=== PATIENT | female | born 1955 | race Caucasian/White ===

== ENCOUNTER 2016-09-24 01:25 | Emergency (ER) | payer OTHER ==
[~2016-09-24] VITALS: Ht 167.6 cm; Wt 78.6 kg
[~2016-09-24 01:25] MED LIST: OMEP20CA11 PO
[2016-09-24 01:30] VITALS: BP 160/80; PULSE 80; RESP 16; O2SAT 96
--- NOTE | 2016-09-24 01:39 | ED.REPORT ---
HPI-General Illness Date of Service Sep 24, 2016 ED Provider: Dr. Jason Mendoza M.D. A 61 year old female with a history of GERD presents to the ED with UTI symptoms onset two days ago. These symptoms include dysuria, urinary frequency, and urinary urgency. She denies flank pain, external genital pain, or fever. She has had a UTI with similar symptoms in the past. Nursing Notes Stated Complaint: POSSIBLE UTI Chief Complaint: Female Abdominal Pain Nursing Notes Reviewed: Yes Allergies: Coded Allergies: tetracycline (Verified Allergy, Severe, Rash,Itching,, 09/12/15) cyclobenzaprine (Verified Allergy, Unknown, 09/12/15) Scheduled Cephalexin (Keflex) 500 Mg Capsule 500 MG PO QID Omeprazole (Omeprazole) 20 Mg Capsule.dr 20 MG PO DAILY Scheduled PRN Phenazopyridine (Phenazopyridine) 200 Mg Tablet 200 MG PO TID PRN PRN dysuria General Time Seen by MD: 01:38 Chief Complaint Other (Dysuria) Hx Obtained From: Patient Arrived By: Walk-in Sudden in Onset?: No Onset Occurred: 2 days ago Symptom Duration: Since onset Severity: Current: No pain currently Severity: Maximum: No pain Associated with: Denies: Fever Pertinent Negative: Relieved by nothing Context Related History: Reports GERD Recent Healthcare: No recent doctor visit Similar Sx Previous: Yes Past Medical History Past Medical History GERD Past Surgical History Colonoscopy Esophagogastroduodenoscopy with biopsies Smoking History Former Smoker Ambulatory Status Independent Review of Systems - external genital pain Full Review of Systems Constitutional: Denies: Fever Female: Reports: Dysuria, Urinary frequency, Urinary urgency, Denies: Flank pain Complete sys rev & neg: except as marked. Physical Exam Vital Signs Vital Signs Date Time Temp Pulse Resp B/P Pulse Ox O2 Delivery O2 Flow Rate FiO2 09/24/16 02:18 36.3 80 16 160/80 96 Room Air 09/24/16 01:30 36.3 80 16 160/80 96 Room Air Initial VS: Reviewed Head / Eyes: Atraumatic, Normocephalic ENT: Conjunctiva normal, No scleral icterus Neck: Supple, Full range of motion Respiratory: No respiratory distress Abdomen / GI: Soft, Non-tender Back: No CVA tenderness Skin: Warm, Dry, No cyanosis Neurologic: Alert, Oriented, Nonfocal Psychiatric: Mood/affect normal, Behavior normal, Normal thought content General/Constitutional: Awake, Alert, No acute distress Interpretation & Diagnostics Lab Results Interpretation Test 09/24/16 01:34 Urine Color Straw (YELLOW) Urine Appearance Slightly cloudy Urine pH 6.5 (5.0-8.0) Urine Specific [place] 1.005 (1.003-1.035) Urine Protein Negativemg/dL (NEG,TRACE) Urine Glucose (UA) Negativemg/dL (NEGATIVE) Urine Ketones Negativemg/dL (NEGATIVE) Urine Occult Blood Large (NEGATIVE) Urine Nitrite Negative (NEGATIVE) Urine Bilirubin Negative (NEGATIVE) Urine Urobilinogen Normalmg/dL (NORMAL) Urine Leukocyte Esterase Large (NEGATIVE) Urine RBC 3-10/hpf (0-2) Urine WBC Packed/hpf (0-5) Urine Epithelial Cells Moderate/hpf (NONE-MOD) Urine Crystals None seen (NONE SEEN) Urine Bacteria None/hpf (NONE-FEW) Urine Hyaline Casts None/lpf (NONE) Urine Granular Casts None seen (NONE SEEN) Urine Waxy Casts None seen (NONE SEEN) Urine Red Blood Cell Casts None seen (NONE SEEN) Urine White Blood Cell Casts None seen (NONE SEEN) Urine Mucus None seen (None Seen) Urine Trichomonas None seen (NONE SEEN) Urine Yeast None (NONE SEEN) Urine Culture Reflexed Indicated Re-Eval/Medical Decision Med Decision/Clinical Course 61-year-old with remote prior UTI presents with typical UTI symptoms, no flank pain, no fever, no vomiting, no other complications. Begun with Keflex, based on current Escherichia coli antibiogram. Peridium for comfort. Follow up with PCP. Source of Hx: Old records Time of Eval: 02:04 Patient Status: Condition improved Re-Evaluation/Progress Note: Discussed with patient diagnosis and plan for discharge. Follow-up and return to the ER instructions given. Patient agrees with plan for care and all questions were addressed. Counseled Regarding: Diagnosis, Need for follow-up, When/why to return to ED Discharge & Departure Shift Change Sign-Out Response to Therapy: Improved Primary Impression: Urinary tract infection Urinary tract infection type: site unspecified Hematuria presence: without hematuria Qualified Code: N39.0 - Urinary tract infection, site not specified Disposition: Home Discharge Condition All VS Reviewed: Yes Condition: Improved Patient Instructions: Urinary Tract Infection in Women (ED) Additional Instructions: Pyridium three times daily as needed for discomfort Keflex four times daily for seven days Follow-up with your doctor in the office Drink plenty of fluids and maintain high urine flow Return if any immediate issues such as vomiting, or fever, or worsening symptoms despite treatment. Referrals: Sharla Norton MD (PCP) Scribe Attestation Portions of this note were transcribed by Iveth Mills. I, Dr. Mendoza, personally performed the history, physical exam, and medical decision-making; I reviewed and confirmed the accuracy of the information in the transcribed note. Signed by: Ruma Dougherty, 09/24/2016, 02:11 copies to: Sharla Norton MD, Christopher W MD Sep 24, 2016 01:38 IVETH MILLS Sep 24, 2016 02:14
[2016-09-24] MEDS ORDERED: PHEN-777 PO (02:04)
[2016-09-24] MEDS ORDERED: CEPH-512 PO (02:04)
[2016-09-24] MEDS ORDERED: Phenazopyridine 97.5 mg Tablet PO ONE (02:05)
[2016-09-24 02:18] VITALS: BP 160/80; PULSE 80; RESP 16; O2SAT 96
[2016-09-24 02:31] LABS: APPEARANCE,URINE SLIGHTLY CLOUDY (CLEAR,HAZY); COLOR,URINE STRAW (YELLOW); OCCULT BLOOD,URINE LARGE (NEGATIVE); PH,URINE 6.5 (5.0-8.0); UROBILINOGEN,URINE NORMAL (NORMAL)
== END 2016-09-24 02:19 | disposition home or self-care (01) ==
LOC: SED 01:25
DX: N39.0 Urinary tract infection, site not specified (principal); K21.9 Gastro-esophageal reflux disease without esophagitis; Z87.891 Personal history of nicotine dependence; B96.20 Unspecified Escherichia coli [E. coli] as the cause of diseases classified elsewhere